=== PATIENT | female | born 1965 | race Hispanic/Latino ===

== ENCOUNTER 2017-04-09 06:14 | Day surgery (SDC) | payer OTHER ==
[2017-04-09 07:07] VITALS: RESP 18
[2017-04-09] MEDS ORDERED: Propofol 10 mg/ml Inj (20 ML) ONE ×2 (07:16→07:54)
[2017-04-09] MEDS ORDERED: Midazolam 2 MG/2 ML VIAL ONE (07:16)
[2017-04-09] MEDS ORDERED: ePHEDrine 50 mg/ml Inj ONE (07:16)
[2017-04-09] MEDS ORDERED: Succinylcholine 200 mg/10 ml Inj IV ONE (07:17)
[2017-04-09] MEDS ORDERED: Rocuronium 10 mg/ml (5 ml) ONE (07:17)
[2017-04-09 07:18] VITALS: BMI 43.4
[2017-04-09] MEDS ORDERED: Bupivacaine 0.5% Inj(30mL) ONE (07:48)
[2017-04-09] MEDS ORDERED: Lidocaine 1% Inj (20ml) ONE (07:48)
[2017-04-09] MEDS ORDERED: methylPREDNISolone Depo 80 mg/ml Inj ONE (07:48)
[2017-04-09] MEDS ORDERED: Morphine 1 mg/ml preservative-free Inj(Duramorph) ONE (08:55)
[2017-04-09] MEDS ORDERED: Bupivacaine 0.5% 50 ML IJ ONE (09:15)
[2017-04-09] MEDS ORDERED: Lactated Ringer's 1,000 ML IV ONE (09:20)
[2017-04-09] MEDS ORDERED: HYDROmorphone 0.5 mg/0.5 ml ISec IVP PRN (09:36)
[2017-04-09] MEDS ORDERED: Lactated Ringer's 1,000 ML IV SCH (09:36)
[2017-04-09 12:56] VITALS: O2SAT 97
[2017-04-09 14:05] VITALS: BP 141/72; PULSE 79; TEMP 98.2
--- NOTE | 2017-04-09 14:23 | PCM.SURG1 ---
Surgeon's Initial Post Op Note - Surgeon's Notes Surgeon: Kp Supervisor [employer]: EDITA Hernandez Type of Anesthesia: General Endo Anesthesia Administered By: DR Carty Pre-Operative Diagnosis: tear medial meniscus. arthritis- chondral damage medial femoral condyle Operative Findings: tear medial/lateral meniscus. chondral damage/arthritis/ medial femoral condule. tricompartmental synovitis Post-Operative Diagnosis: as above Operation Performed: surgical arthroscopy- microfracture R knee. surgical arthroscopy- partial medial/partial lateral meniscectomy. rocco arthroscopy partial tricompartmental synovectomy. intrarticular injection. applx knee immobilizer Specimen/Specimens Removed: synovium/bone/tendon Estimated Blood Loss: EBL {In ML}: 5 Blood Products Given: N/A Drains Used: No Drains Post-Op Condition: Good Date of Surgery/Procedure: 04/09/17 Time of Surgery/Procedure: 08:40 (time i8n room/anaesthesia indcution time 7:43)
--- NOTE | 2017-04-09 16:33 | PCM.OP ---
Operative Report - Operative Report Date of Surgery/Procedure: 04/09/17 Time of Surgery/Procedure: 08:40 (time in room 7:43) Surgeon: Kp Motor Vehicle Licence Examiner: Charo Astudillo Anesthesia/Sedation: .PEYTON Carty Pre-Operative Diagnosis: internal derangement right knee Post-Operative Diagnosis: tear medfial/tear lateral meniscus. chondral eburnation/arthrits medial compartment with eburnation medial femoral condyle. tricompartmental synovitis Indication for Surgery: as above Operative Findings: as above Procedure/Operation Description: surgical arthroscopy- microfracture medial femoral condyle right knee. surgical; arthroscopy- partial medial/lateral meniscectomy. surgical arthroscopy partial tricompartmental synovectomy. intrarticular injection. applx Farhad Noble compression dressing and knee immobilizer. Dr. Goodrich dictating operative note on patient Aury Richard. Operative procedure: After obtaining informed consent after thoroughly discussing the pros cause risks and benefits of surgical arthroscopy of the right knee possible partial meniscectomy and possible microfracture and possible synovectomy after having identified the right knee side site and procedure after the satisfactory induction of general endotracheal anesthesia the right lower extremity is prepped and free draped in the usual fashion for lower extremity surgery. The joint is insufflated with 10 mL of 1% lidocaine without epinephrine. From an anterolateral portal using an 11 blade followed by spreading followed by introduction of blunt trocar and arthroscope was introduced. Triangulation is accomplished using an 18-gauge spinal needle followed by #11 blade Followed by introduction of the blunt trocar . There is found to be an exuberant tricomaprtmental synovitis. With the arthroscope anterolaterally a careful partial tricompartmental synovectomy is accomplished using arthroscopic shaver to improve visualization and to ablate irritative tissue. With the surgeon exerting a gentle valgus stress the medial compartment was exposed to advantage. This can be a complex tear of the medial meniscus. With the surgeon exerting a gentle valgus stress the posterior horn medial meniscus was exposed. With the arthroscope transferred anteromedially using a combination of the up-biting basket forceps and the straight biting basket forceps a partial medial meniscectomy was accomplished. With the arthroscope anteromedially. Meniscus is removed using the arthroscopic shaver and the Mireya wand. The debridement of the posterior horn is accomplished using the 3.4 mm [employer] suction punch and straight and the straight biting basket forceps. The free edges smoothed using wand. The medial femoral condyle is found to be completely denuded an area that the subchondral bone with the scope anteromedially using the arthroscopic pick, a careful microfracture is accomplished. The plate is employed to affect a honeycomb lattice down through the subchondral plate. The arthroscope was then transferred anterolaterally and the knee in [id number] position there is a tear of the inner free edge of the lateral meniscus. Using a combination of the straight biting basket forceps and the side biting basket forceps a partial lateral meniscectomy was accomplished. The free edge of the lateral meniscus is removed using the [employer] wand. The wound was thoroughly irrigated closure was in layers with interrupted Vicryl and nylon. Intra-articular injection was offered Farhad Noblecompression dressing was apllied. Intraraticular injection of marcaine and duromorph is accomplished prior to wound dressing. This is the end of the operative note on patient Aury Richard. Estimated Blood Loss: 20cc Blood Replaced: 0 Sponge/Instrument Count: correct Drains: 0 Complications: none Specimen: skin,subcutaneous tissue, foreign bodies Discharge & Condition: stable condiotion on d/c
[2017-04-10] MEDS ORDERED: Insulin Regular 100 units/ml SC SCH (07:30)
== END 2017-04-09 14:30 | disposition home or self-care (01) ==
LOC: H.OPSURG 06:14
PROVIDERS: ATTEND Orthopaedic Surgery
DX: S83.231A Complex tear of medial meniscus, current injury, right knee, initial encounter (principal); S83.281A Other tear of lateral meniscus, current injury, right knee, initial encounter; M65.861 Other synovitis and tenosynovitis, right lower leg; M13.861 Other specified arthritis, right knee; E11.9 Type 2 diabetes mellitus without complications; Y93.B9 Activity, other involving muscle strengthening exercises; Z79.84 Long term (current) use of oral hypoglycemic drugs